=== PATIENT | female | born 1970 | race Caucasian/White ===

== ENCOUNTER → 2017-02-12 | Outpatient (CLI) | payer BC ==
[2016-11-10 10:46] VITALS: BP 127/90
--- NOTE | 2017-02-12 13:51 | RAD ---
Condition: Ultrasound soft tissue neck History: History of nodules in the neck Comparison: None available Findings: Multiple numerous slightly prominent lymph nodes identified in the left cervical region in the lateral neck with the largest measuring 1.1 cm. There are 0.7 cm and 0.8 cm lymph nodes identified left supraclavicular region. There is a cervical lymph node identified in the right cervical region laterally measuring 0.7 cm Impression: Multiple small lymph nodes identified in the bilateral neck with numerous on the left with the largest measuring 1.1 cm. Small lymph nodes identified in the left supraclavicular region as well. These most likely are reactive lymphadenopathy given the appearance. If the lymph nodes persists, consider CT soft tissue neck with IV contrast.
== END | disposition home or self-care (01) ==
LOC: US 12:44
PROVIDERS: ATTEND Physician Assistant
DX: R59.0 Localized enlarged lymph nodes (principal)
CPT/HCPCS: 76536

== ENCOUNTER → 2017-03-09 | Outpatient (CLI) | payer BC ==
[2016-11-10 10:46] VITALS: BP 127/90
[~2017-03-09] MED LIST: IOHEXOL 300 MG/ML 75 ML VIAL. IV ONE
--- NOTE | 2017-03-09 11:41 | RAD ---
CT scan of the neck and chest with contrast 03/09/2017 Clinical history: Patient has nodules and swelling in the left side of the neck. History of lung nodules. Technique: After the intravenous administration of 75 cc of Omnipaque 300, contiguous, 3 mm axial sections were obtained through the neck, chest and upper abdomen. One or more of the following individualized dose reduction techniques were utilized for this study: 1. Automated exposure control. 2. Adjustment of the mA and/or kV according to patient size. 3. Use of iterative reconstruction technique. Findings: Comparison is made to the patient's ultrasound of the neck dated 02/12/2017. Additional comparison is made to patient's CT scan of the chest dated 03/12/2016. The mucosal structures of the nasopharynx, oropharynx, hypopharynx and larynx are within normal limits. The thyroid gland, submandibular glands and parotid glands are within normal limits. The visualized paranasal sinuses are clear. Prominent likely reactive lymph nodes are seen throughout the neck. These measure 5 mm to 1.5 cm in size. A radiopaque marker was placed in the left neck in the area where the patient feels a palpable abnormality. This appears to correspond to 9 mm reactive lymph node which is deep to the sternocleidomastoid muscle. No abnormal soft tissue mass is seen within the neck. No pathologic cervical lymphadenopathy is seen. Degenerative changes are seen involving the uncovertebral and facet joints throughout the mid and lower cervical disc spaces. The heart and thoracic aorta are within normal limits. Likely reactive mediastinal lymph nodes are seen. These measure 5 millimeters to 1 cm in size. Enlarged left hilar lymph nodes are seen which measure 1 to 2 cm in size. They have not significantly changed. No axillary lymphadenopathy is seen. A 1.1 cm noncalcified nodule is seen involving the left lower lobe. This contains fat and is consistent with a pulmonary hamartoma. It has not significantly changed. A 7 mm noncalcified nodule is seen just lateral to this within the left lower lobe. A 3 mm noncalcified nodule seen more inferiorly within the left lower lobe. A 2 mm nodular opacity is seen involving the superior aspect of the right upper lobe. The very small nodular opacities seen on the right middle lobe on the previous examination are not well visualized on today's study. The remaining pulmonary nodules are unchanged. No new pulmonary nodule seen. No acute pulmonary infiltrate is noted. No pleural effusion or pneumothorax is seen. Images through the upper abdomen demonstrate decreased attenuation of the liver parenchyma consistent with mild fatty infiltration. Degenerative changes are seen involving the thoracic spine. Impression: 1. Small likely reactive lymph nodes are seen scattered throughout the neck. One of these appears to correspond to the patient's palpable abnormality. 2. Stable CT appearance of the nodules within both lungs. No new pulmonary nodule is seen.
== END | disposition home or self-care (01) ==
LOC: CT 09:13
PROVIDERS: ATTEND Internal Medicine Pulmonary Disease
DX: R91.8 Other nonspecific abnormal finding of lung field (principal)
CPT/HCPCS: 71260; 72132; Q9967

== ENCOUNTER 2017-06-28 11:13 | Emergency (ER) | payer BC ==
[~2017-06-28] VITALS: Ht 152.4 cm; Wt 79.4 kg
--- NOTE | 2017-06-28 11:45 | PHYS DOC ---
General Chief Complaint: DENTAL PROBLEM Stated Complaint: DENTAL PAIN Time Seen by MD: 11:17 Source: patient Exam Limitations: no limitations Problems: History of Present Illness Initial Comments Patient is a 46-year-old female who comes complaining of dental pain. Patient states that last night her left posterior lower molar began to hurt. Pain is described as sharp and achy 8 out of 10 no exacerbating or relieving factors. She denies fever chills sweats or myalgias no nausea or vomiting. Over- the-counter medications are not helping the patient has a dentist but has not yet secured an appointment. Timing/Duration: abrupt, yesterday Severity: severe Location: dental Prearrival Treatment: over the counter meds Modifying Factors: improves with other Associated Symptoms: tooth pain Allergies: Coded Allergies: Penicillins (Verified Allergy, Unknown, 03/09/17) acetaminophen (Verified Allergy, Unknown, 03/09/17) meperidine (Verified Allergy, Unknown, 03/09/17) Past Medical History Medical History: hypertension (bipolar) Surgical History: noncontributory Social History Smoker: non-smoker Alcohol: none Drugs: marijuana Constitutional: denies chills, denies diaphoresis, denies fever, denies malaise Nose: denies clots, denies congestion Mouth: see HPI Throat: denies pain, denies swelling, denies neck stiffness Respiratory: denies cough, denies shortness of breath Cardiovascular: denies chest pain, denies palpitations Gastrointestinal: denies nausea, denies vomiting Physical Exam General Appearance: no apparent distress, obese Eyes: bilateral eye normal inspection, bilateral eye PERRL, bilateral eye EOMI Nose: normal inspection Mouth/Throat: other (extensive decay noted at the left lower posterior molar there is bilateral gingival erythema without swelling there is no purulence or bony tenderness.) Neck: supple, trachea midline Cardiovascular/Respiratory: normal breath sounds, no respiratory distress Neurologic/Psychiatric: pressure tester II-XII nml as tested, alert, normal mood/affect Skin: normal color, warm/dry Departure Time of Disposition: 11:43 Disposition: 01 HOME, SELF-CARE Diagnosis: dental caries Condition: STABLE Patient Instructions: Dental Caries Additional Instructions: Aggressive hydration with Gatorade and water to prevent dehydration. Soft foods as tolerated. [id number]-[id number] ibuprofen for baseline discomfort. Listerine gargles 3 times daily after routine brushing and flossing. Prescription: Bactrim DS, Vicoprofen quantity 10 take medications with food. As discussed you must follow-up with a dentist to resolve this condition. Call your dentist tomorrow morning to schedule next available appointment. Return to the ED with new or changing symptoms. RAN SCRUGGS DO Jun 28, 2017 11:45
[2017-06-28 12:00] VITALS: BP 173/101
== END 2017-06-28 11:50 | disposition home or self-care (01) ==
LOC: ER 11:13
DX: K02.9 Dental caries, unspecified (principal); F17.200 Nicotine dependence, unspecified, uncomplicated; I10 Essential (primary) hypertension; F12.10 Cannabis abuse, uncomplicated; Z88.6 Allergy status to analgesic agent; Z88.8 Allergy status to other drugs, medicaments and biological substances; Z88.0 Allergy status to penicillin
CPT/HCPCS: 99283

== ENCOUNTER 2018-03-28 13:28 | Emergency (ER) | payer BC ==
[~2018-03-28] VITALS: Ht 152.4 cm; Wt 79.4 kg
[2018-03-28] MEDS ORDERED: CLIN300C8 PO (14:10)
--- NOTE | 2018-03-28 14:10 | PHYS DOC ---
Past History Past Medical History: Bipolar, Hypertension Past Surgical History: Hysterectomy, Tubal ligation, Other Alcohol Use: None Drug Use: Marijuana Adult General Chief Complaint Chief Complaint: DENTAL PROBLEM HPI HPI Patient is a 47 year old F who presents with dental pain on the left lower molars. She states that over the past 2-3 days she's had increasing pain and swelling. She does have an appointment with her dentist within the next week to have her teeth removed. She denies fevers sweats or chills. She has no other associated symptoms. Her symptoms are worse with eating and drinking. She has no other exacerbating or relieving factors. Review of Systems Review of Systems Constitutional: Denies fever or chills [] Eyes: Denies change in visual acuity, redness, or eye pain [] HENT: Denies nasal congestion or sore throat [] Respiratory: Denies cough or shortness of breath [] Cardiovascular: No additional information not addressed in HPI [] GI: Denies abdominal pain, nausea, vomiting, bloody stools or diarrhea [] : Denies dysuria or hematuria [] Musculoskeletal: Denies back pain or joint pain [] Integument: Denies rash or skin lesions [] Neurologic: Denies headache, focal weakness or sensory changes [] Endocrine: Denies polyuria or polydipsia [] All other systems were reviewed and found to be within normal limits, except as documented in this note. Family History Family History No pertinent family medical history reported Current Medications Current Medications Medications reviewed Allergies Allergies Allergies Coded Allergies Type Severity Reaction Last Updated Verified Penicillins Allergy Unknown 03/09/17 Yes acetaminophen Allergy Unknown 03/09/17 Yes meperidine Allergy Unknown 03/09/17 Yes Physical Exam Physical Exam Constitutional: Well developed, well nourished, no acute distress, non-toxic appearance. [] HENT: Normocephalic, atraumatic, very poor dentition generally, left lower molar moderate pain to palpation and surrounding tendinitis noted Eyes: EOMI, conjunctiva normal, no discharge. [] Neck: Normal range of motion, no tenderness, supple, no stridor. [] Cardiovascular:Heart rate regular rhythm, no murmur [] Lungs & Thorax: Bilateral breath sounds clear to auscultation Skin: Warm, dry, no erythema, no rash. [] Extremities: No tenderness, no cyanosis, no clubbing, ROM intact, no edema. [] Neurologic: Alert and oriented X 3, normal motor function, normal sensory function, no focal deficits noted. [] Psychologic: Affect normal, judgement normal, mood normal. [] Current Patient Data Vital Signs Vital Signs Date Time Temp Pulse Resp B/P (MAP) Pulse Ox O2 Delivery O2 Flow Rate FiO2 03/28/18 13:39 98.5 95 18 98 Room Air EKG EKG [] Radiology/Procedures Radiology/Procedures [] Course & Med Decision Making Course & Med Decision Making Pertinent Labs and Imaging studies reviewed. (See chart for details) Daina was started on clindamycin and a prescription was given at discharge. Dragon Disclaimer Vigilos Disclaimer This electronic medical record was generated, in whole or in part, using a voice recognition dictation system. Departure Departure: Impression: Primary Impression: Dental infection Disposition: HOME, SELF-CARE Condition: STABLE Referrals: SARKIS COHN (PCP) Patient Instructions: Dental Abscess Additional Instructions: Daina was seen in the emergency department for dental pain. No emergency medical condition was found on history or physical exam. Her symptoms are most consistent with an infection. She was started on antibiotic and advised follow- up with her dentist as soon as possible for further management. Scripts Clindamycin Hcl (CLINDAMYCIN HCL) 300 Mg Capsule 1 CAP PO TID for 14 Days, #42 CAP Prov: EDNA GONZALEZ MD 03/28/18 EDNA GONZALEZ MD Mar 28, 2018 14:10
[2018-03-28] MEDS ORDERED: CLINDAMYCIN HCL 150 MG CAPSULE PO ONE (14:15)
[2018-03-28 14:28] VITALS: BP 137/82
== END 2018-03-28 14:26 | disposition home or self-care (01) ==
LOC: ER 13:28
DX: K04.7 Periapical abscess without sinus (principal); I10 Essential (primary) hypertension; F31.9 Bipolar disorder, unspecified; F12.10 Cannabis abuse, uncomplicated; Z88.0 Allergy status to penicillin; Z88.6 Allergy status to analgesic agent; Z88.8 Allergy status to other drugs, medicaments and biological substances
CPT/HCPCS: 99283

== ENCOUNTER → 2019-10-13 | Outpatient (CLI) | payer BC ==
[~2019-10-13] MED LIST changes: +CLIN300C8 PO; -IOHEXOL 300 MG/ML 75 ML VIAL. IV ONE
--- NOTE | 2019-10-13 17:18 | RAD ---
Examination: US PELVIS W/TV History: Dysfunctional uterine bleeding Comparison/Correlation: 04/23/2011 CT abdomen and pelvis with contrast Findings: Transabdominal and transvaginal pelvic ultrasound exam was performed. Transvaginal technique was utilized better assess the adnexal structures. Uterus measures 9.3 cm x longitudinal 5.8 cm transverse. Endometrial thickness is 1.3 cm. Flow is noted involving the endometrium. There is a right adnexal intermediate echogenicity mass measuring 2.1 cm x 1 cm x 3.3 cm with flow within it. Right ovary is not distinguished from this mass. Left ovary measures 3.7 cm x 0.67 x 4.9 cm. Left ovarian 3 cm diameter cyst is present. Impression: Thickened endometrium. Patient is reportedly perimenopausal. Correlate clinically in determining further assessment with direct visualization. Right adnexal mass. It is indeterminate if this is related to the ovary is a ovary is not delineated. Further evaluation MRI of the pelvis without and with contrast is recommended if able for further characterization. Electronically signed by: Hi Baires MD (10/13/2019 5:15 PM) [facility]
== END | disposition home or self-care (01) ==
LOC: US 09:43
PROVIDERS: ATTEND Nurse Practitioner Women's Health
DX: N83.292 Other ovarian cyst, left side (principal); N85.8 Other specified noninflammatory disorders of uterus
CPT/HCPCS: 76830; 76856

== ENCOUNTER 2020-11-14 08:37 | Emergency (ER) | payer SELFPAY ==
[~2020-11-14] VITALS: Ht 152.4 cm; Wt 102.2 kg
[2020-11-14] MEDS ORDERED: ASPIRIN CHEWABLE 81 MG TABLET. PO ONE (09:00)
[2020-11-14 09:14] LABS: BASO % 0 % (0-3); EOS # 0.3 x10^3/uL (0.0-0.7); EOS % 2 % (0-3); HEMATOCRIT 44.8 % (36.0-47.0); HEMOGLOBIN 14.4 g/dL (12.0-15.5); LYMPH # 3.4 x10^3/uL (1.0-4.8); LYMPH % 30 % (24-48); MEAN CORPUSCULAR HEMOGLOBIN 28 pg (25-35); MEAN CORPUSCULAR HGB CONC 32 g/dL (31-37); MEAN CORPUSCULAR VOLUME 87 fL (79-100); MONO # 0.7 x10^3/uL (0.0-1.1); MONO % 6 % (0-9); NEUT # 6.8 x10^3uL (1.8-7.7); NEUT % 61 % (31-73); PLATELET COUNT 307 x10^3/uL (140-400); RED BLOOD COUNT 5.18 x10^6/uL (3.50-5.40); WHITE BLOOD COUNT 11.1 x10^3/uL (4.0-11.0)
[2020-11-14 09:30] LABS: CREATININE 1.2 mg/dL (0.6-1.0); GFR 47.2; POTASSIUM 3.7 mmol/L (3.5-5.1)
--- NOTE | 2020-11-14 09:33 | RAD ---
Chest radiograph 11/14/2020 8:50 AM INDICATION: Chest pain COMPARISON: CT chest 03/12/2016 TECHNIQUE: Frontal and lateral views of the chest are provided. FINDINGS: The cardiomediastinal silhouette is within normal limits. There are no pleural effusions. There is no pulmonary vascular congestion. There is no pneumothorax. The lungs are clear. No significant osseous abnormality is identified. IMPRESSION: No acute cardiopulmonary process. Electronically signed by: Ana Mcneal MD (11/14/2020 9:31 AM) [id number]
[2020-11-14] MEDS ORDERED: ONDANSETRON PF 4 MG/2 ML VIAL. IVP ONE (09:45)
[2020-11-14 10:17] VITALS: BP 139/86
--- NOTE | 2020-11-14 11:53 | EKG ---
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
--- NOTE | 2020-11-14 11:54 | PHYS DOC ---
Past History Past Medical History: Bipolar, Fibromyalgia, Hypertension, Other Additional Past Medical Histor: ovarian mass, back pain Past Surgical History: Appendectomy, Cholecystectomy, Tubal ligation Alcohol Use: None Drug Use: Marijuana Adult General Chief Complaint Chief Complaint: CHEST PAIN [facility] HPI Patient is 50-year-old female who presents to the emergency room complaining of 1 out of 10 chest pressure on the left side of her chest. Patient states that she did not sleep last night due to severe anxiety and stress. Patient states that she has had a lot of stress over the last several months which is not gotten better over time. Patient states that she has never had chest pain previously. She does not have any associated symptoms. She does not have any shortness of breath, cough, sore throat. She otherwise is feeling normal. She is very fatigued from not sleeping last night. She states she just generally feels weird. Review of Systems Review of Systems Complete ROS is negative unless otherwise documented in HPI Current Medications Current Medications Current Medications Medications (Trade) Dose Ordered Sig/Lesly Start Time Stop Time Status Last Admin Dose Admin Aspirin (Aspirin Chewable) 324 mg 1X ONCE 11/14/20 09:00 11/14/20 09:01 DC 11/14/20 09:27 324 MG Diazepam (Valium) 5 mg 1X ONCE 11/14/20 12:00 11/14/20 12:01 Ketorolac Tromethamine (Toradol 30mg Vial) 30 mg 1X ONCE 11/14/20 12:00 11/14/20 12:01 Ondansetron HCl (Zofran) 4 mg 1X ONCE 11/14/20 09:45 11/14/20 09:46 DC 11/14/20 09:48 4 MG Allergies Allergies Allergies Coded Allergies Type Severity Reaction Last Updated Verified Penicillins Allergy Unknown 11/14/20 Yes acetaminophen Allergy Unknown 11/14/20 Yes meperidine Allergy Unknown 11/14/20 Yes Physical Exam Physical Exam General: Awake, alert, NAD. Well Nourished, well hydrated. Cooperative HEENT: Atraumatic, EOMI, PERRL, airway patent, moist oral mucosa Neck: Supple, trachea midline Respiratory: CTA bilaterally, normal effort, no wheezing/crackles CV: RRR, no murmur, cap refill <2 GI: Soft, nondistended, nontender, no masses MSK: No obvious deformities Skin: Warm, dry, intact Neuro: A&O x3, speech NL, sensory and motor grossly intact, no focal deficits Psych: Normal affect, normal mood, not suicidal or homicidal Current Patient Data Vital Signs Vital Signs Date Time Temp Pulse Resp B/P (MAP) Pulse Ox O2 Delivery O2 Flow Rate FiO2 11/14/20 10:17 58 30 139/86 (103) 99 11/14/20 08:40 98.0 Room Air Lab Results Laboratory Tests Test 11/14/20 08:53 11/14/20 11:04 White Blood Count 11.1 x10^3/uL (4.0-11.0) H Red Blood Count 5.18 x10^6/uL (3.50-5.40) Hemoglobin 14.4 g/dL (12.0-15.5) Hematocrit 44.8 % (36.0-47.0) Mean Corpuscular Volume 87 fL (79-100) Mean Corpuscular Hemoglobin 28 pg (25-35) Mean Corpuscular Hemoglobin Concent 32 g/dL (31-37) Red Cell Distribution Width 16.0 % (11.5-14.5) H Platelet Count 307 x10^3/uL (140-400) Neutrophils (%) (Auto) 61 % (31-73) Lymphocytes (%) (Auto) 30 % (24-48) Monocytes (%) (Auto) 6 % (0-9) Eosinophils (%) (Auto) 2 % (0-3) Basophils (%) (Auto) 0 % (0-3) Neutrophils # (Auto) 6.8 x10^3uL (1.8-7.7) Lymphocytes # (Auto) 3.4 x10^3/uL (1.0-4.8) Monocytes # (Auto) 0.7 x10^3/uL (0.0-1.1) Eosinophils # (Auto) 0.3 x10^3/uL (0.0-0.7) Basophils # (Auto) 0.0 x10^3/uL (0.0-0.2) Sodium Level 135 mmol/L (136-145) L Potassium Level 3.7 mmol/L (3.5-5.1) Chloride Level 99 mmol/L (98-107) Carbon Dioxide Level 22 mmol/L (21-32) Anion Gap 14 (6-14) Blood Urea Nitrogen 14 mg/dL (7-20) Creatinine 1.2 mg/dL (0.6-1.0) H Estimated GFR (Cockcroft-Gault) 47.2 Glucose Level 151 mg/dL (70-99) H Calcium Level 10.0 mg/dL (8.5-10.1) Troponin I Quantitative < 0.017 ng/mL (0-0.055) < 0.017 ng/mL (0-0.055) ZO-Ygd-O-Type Natriuretic Peptide 15 pg/mL (0-124) EKG EKG [] Radiology/Procedures Radiology/Procedures [] Heart Score Risk Factors: Risk Factors: DM, Current or recent (<one month) smoker, HTN, HLP, family history of CAD, obesity. Risk Scores: Risk Factors: DM, Current or recent (<one month) smoker, HTN, HLP, family history of CAD, obesity. Course & Med Decision Making Course & Med Decision Making Pertinent Labs and Imaging studies reviewed. (See chart for details) Patient is a 50 year-old female who presents to the Emergency Room complaining of chest pain that is mild. History is significant for significant stress at home. At this time, given patient's risk factors and story there is concern for possible cardiac pathology. EKG was ordered and shows normal sinus rhythm. At this time there is no signs of STEMI, pericarditis, or unstable arrthymia on EKG. Patient has received aspirin today. CBC, BMP, troponin, CXR were ordered to evaluate for causes of chest pain including ACS, anemia, electrolyte abnormalities that can lead to arrhythmias, PTX, pneumonia, pneumomediastinum. Patient does not have any abdominal tenderness that would suggest pancreaititis or cholecystitis and does not need an abdominal work up at this time. Patient's HEART score is 2 placing the patient at low risk. Patient is feeling much better. Delta troponin is negative. At this time patient is stable for discharge and follow-up outpatient. Patient is in agreement with plan. Patient's test results and vitals while in the ED were fully reviewed and discussed with the patient. Patient is stable and at this time does not need admission to the hospital. We have discussed strict return precautions and the importance of following up with their Primary Care Physician. Patient stated understanding and was given an opportunity to ask any questions. Patient is in agreement with plan. Dragon Disclaimer Dragon Disclaimer This electronic medical record was generated, in whole or in part, using a voice recognition dictation system. Departure Departure: Impression: Primary Impression: Chest pain Disposition: 01 DC HOME SELF CARE/HOMELESS Condition: STABLE Referrals: SARKIS COHN (PCP) Patient Instructions: Chest Pain (Nonspecific) DEYSI CHRISTIANSEN MD Nov 14, 2020 11:54
[2020-11-14] MEDS ORDERED: KETOROLAC 30 MG/ML VIAL. IVP ONE (12:00)
[2020-11-14] MEDS ORDERED: diazePAM 5 MG TABLET. PO ONE (12:00)
== END 2020-11-14 12:20 | disposition home or self-care (01) ==
LOC: ER 08:37
DX: R07.89 Other chest pain (principal); F31.9 Bipolar disorder, unspecified; M79.7 Fibromyalgia; I10 Essential (primary) hypertension; Z88.0 Allergy status to penicillin; Z88.8 Allergy status to other drugs, medicaments and biological substances
CPT/HCPCS: 36415; 71046; 80048; 83880; 84484; 85025; 93005; 96374; 99285; J2405